=== PATIENT | male | born 1965 | race Caucasian/White ===

== ENCOUNTER 2023-06-03 07:01 | Day surgery (SDC) | payer OTHER ==
[~2023-06-03] VITALS: Ht 162.6 cm; Wt 88.0 kg
[2023-06-03] MEDS ORDERED: LIDOCAINE MPF 1% 5 ML ONE ×2 (07:50→07:53)
[2023-06-03] MEDS ORDERED: fentaNYL citrate 0.05 MG/ML VIAL ONE ×2 (07:50→08:41)
[2023-06-03] MEDS ORDERED: MIDAZOLAM 2 MG/2 ML VIAL ONE ×2 (07:50→08:40)
[2023-06-03] MEDS ORDERED: MIDAZOLAM 5 MG/5 ML VIAL ONE (08:27)
[2023-06-03] MEDS ORDERED: ACETAMINOPHEN EXTRA STRENGTH 500 MG TAB PO PRN (11:05)
[2023-06-03] MEDS ORDERED: MIDAZOLAM 2 MG/2 ML VIAL IVP ONE (12:20)
[2023-06-03] MEDS ORDERED: fentaNYL citrate 0.05 MG/ML VIAL IVP ONE (12:20)
[2023-06-03] MEDS ORDERED: LIDOCAINE MPF 1% 10 MG/ML VIAL INJ SCH (12:20)
== END 2023-06-03 12:31 | disposition home or self-care (01) ==
LOC: MOR 07:01 → MMU 07:02 → MOR 12:31
PROVIDERS: ATTEND Internal Medicine Gastroenterology
DX: K75.81 Nonalcoholic steatohepatitis (NASH) (principal); I10 Essential (primary) hypertension; E78.00 Pure hypercholesterolemia, unspecified; F32.A Depression, unspecified; F41.9 Anxiety disorder, unspecified; E11.9 Type 2 diabetes mellitus without complications; Z90.49 Acquired absence of other specified parts of digestive tract; Z79.899 Other long term (current) drug therapy
CPT/HCPCS: 47000; 76942; J2001; J2250; J3010; Q0092